=== PATIENT | female | born 1975 | race Hispanic/Latino ===

== ENCOUNTER 2020-08-17 08:04 | Emergency (ER) | payer BC ==
--- NOTE | 2020-08-17 08:58 | RAD ---
Left foot 3 views HISTORY: Injury. FINDINGS: Lisfranc joint alignment is anatomic. Plantar arch is maintained Osteoarthritic changes of the ankle, hindfoot, and midfoot are apparent. Forefoot relatively spared. No acute fracture or dislocation. Enthesophytes arise from the Achilles insertion and plantar origin of the posterior aspect of the zana caneus. Dystrophic calcification also projects over the anterior margin of the distal Achilles tendon. Soft tissue swelling surrounds the dystrophic calcification. Moderate calcification over the arterial structures. IMPRESSION : No acute osseous abnormalities are demonstrated. Osteoarthritic changes throughout the foot and ankle. 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 Atherosclerosis.
== END 2020-08-17 09:21 | disposition home or self-care (01) ==
LOC: NAV ERS 08:04
DX: S86.012A Strain of left Achilles tendon, initial encounter (principal); E11.9 Type 2 diabetes mellitus without complications; I10 Essential (primary) hypertension; Z79.899 Other long term (current) drug therapy; X58.XXXA Exposure to other specified factors, initial encounter